=== PATIENT | male | born 1965 | race Caucasian/White ===

== ENCOUNTER 2018-02-16 17:10 | Emergency (ER) | payer OTHER ==
[~2018-02-16] VITALS: Ht 182.9 cm; Wt 80.0 kg
[2018-02-16 17:43] VITALS: BP 103/61; PULSE 93; RESP 16; TEMP 98.3; O2SAT 98
[2018-02-16] MEDS ORDERED: QUET300XR PO (18:48)
--- NOTE | 2018-02-16 18:48 | PD ---
HPI Chief Complaint: Medication Refill Request Time Seen by Provider: 18:33 Travel History International Travel<30 days: No Contact w/Intl Traveler<30days: No Traveled to known affect area: No History of Present Illness HPI 52-year-old male presents to the emergency department requesting refill on Seroquel 300 mg at hour of sleep for PTSD and nightmares. He has been out of medication for 2 days. Has a psychiatrist in [place], but is here on vacation and ran out of his medication. Does not know if he is going to go back home. Denies suicidal or homicidal ideation. Denies auditory visual hallucinations. Reports marijuana use. His Seroquel prevents him from having nightmares. Without his Seroquel he has nightmares. He has no other emergent medical complaints. Denies chest pain, shortness of breath, abdominal pain, nausea, vomiting, change in urine or stool. No primary care provider. Psychiatrist is in [place]. No known allergies. History of PTSD. Denies other significant past medical history. Has no other medical complaints. No other modifying factors or associated signs and symptoms. PFSH Social History Tobacco Use: No Substance Use: Yes (marijuana) Allergies-Medications (Allergen,Severity, Reaction): Coded Allergies: No Known Allergies (Unverified , 02/16/18) Reported Meds & Prescriptions Reported Meds & Active Scripts Active Seroquel XR (Quetiapine Fumarate) 300 Mg Tab 300 Mg PO HS Review of Systems Except as stated in HPI: all other systems reviewed are Neg Physical Exam Narrative GENERAL: Well-nourished, well-developed patient, in no acute distress SKIN: Warm and dry. HEAD: Atraumatic. Normocephalic. EYES: Pupils equal and round. ENT: Mucosa pink and moist. NECK: Supple. Trachea midline. CARDIOVASCULAR: Regular rate. RESPIRATORY: No accessory muscle use. GASTROINTESTINAL: Flat. MUSCULOSKELETAL: No obvious deformities. No clubbing. No cyanosis. No edema. NEUROLOGICAL: Awake and alert. Oriented 3. No obvious cranial nerve deficits. Motor grossly within normal limits. Normal speech. Moves all extremities. 5/5 strength to all extremities. PSYCHIATRIC: No delusional thought processes. No hallucinations. Data Data Last Documented VS Vital Signs Date Time Temp Pulse Resp B/P (MAP) Pulse Ox O2 Delivery O2 Flow Rate FiO2 02/16/18 17:43 98.3 93 16 103/61 (74) 98 Orders Orders Ed Discharge Order (02/16/18 18:48) MDM Medical Decision Making Medical Screen Exam Complete: Yes Emergency Medical Condition: Yes Medical Record Reviewed: Yes Differential Diagnosis Medication refill, PTSD, night terrors Narrative Course 52-year-old male presents requesting medication refill on Seroquel 300 mg at hour sleep for history of PTSD and night terrors. He last took his medication 2 days ago. He denies suicidal homicidal ideations. Patient provided follow- up information to Tam[facility]. Seroquel prescribed for home. Instructed patient to follow up with primary care provider. Patient verbalizes understanding and agreement with treatment plan. Patient is medically cleared and stable for discharge. Discussed reasons to return to the emergency department. Patient agrees with treatment plan. The patients vital signs are stable and the patient is stable for outpatient follow-up and treatment. Patient discharged home, stable and in no acute distress. Diagnosis Primary Impression: Medication refill Referrals: [facility] (Out patient) [facility] Physician Psychiatrist Juan C [facility] Patient Instructions: General Instructions, Medication Refill, ED, Night Terrors (ED), Post Traumatic Stress Disorder (ED) Additional Instructions: Follow-up with psychiatry Follow-up with primary care provider Follow-up with Mike Anderson/[facility] Return to the emergency department immediately with worsening of symptoms Med/Other Pt SpecificInfo: Prescription(s) given Scripts Quetiapine XR (Seroquel XR) 300 Mg Tab 300 MG PO HS, #7 TAB 0 Refills Prov: Ashwini Viera 02/16/18 Disposition: 01 DISCHARGE HOME Condition: Stable Ashwini Viera Feb 16, 2018 18:48
== END 2018-02-16 19:07 | disposition home or self-care (01) ==
LOC: NEPK 17:10
DX: Z76.0 Encounter for issue of repeat prescription (principal); F43.10 Post-traumatic stress disorder, unspecified; F12.90 Cannabis use, unspecified, uncomplicated
CPT/HCPCS: 99281